=== PATIENT | female | born 1960 | race Caucasian/White ===

== ENCOUNTER → 2020-07-28 17:41 | Outpatient (CLI) | payer BC, SELFPAY ==
--- NOTE | ~2020-07-28 | MM_ITS ---
EXAMINATION: MM screening [facility] HISTORY: Screening mammogram TECHNIQUE: Craniocaudal and mediolateral oblique 3-D tomosynthesis images were obtained and synthetic 2-D images were generated. CAD analysis was submitted and interpreted. COMPARISON: No prior mammogram is available for comparison at this institution. BREAST PARENCHYMAL COMPOSITION: The breasts are almost entirely fatty. FINDINGS: There is no evidence of suspicious mass, calcification, or architectural distortion to sugg est malignancy in either breast. IMPRESSION: 1. No mammographic evidence of malignancy. 2. Recommend routine screening mammography in one year. BI-RADS Category 1: Negative Reviewed, dictated and finalized at location A.
== END ==
PROVIDERS: PCP Student in an Organized Health Care Education/Training Program; Visit Provider Student in an Organized Health Care Education/Training Program
DX: Z12.31 Encounter for screening mammogram for malignant neoplasm of breast (principal)
CPT/HCPCS: 77063; 77067

== ENCOUNTER → 2022-11-30 16:01 | Outpatient (CLI) | payer BC, SELFPAY ==
--- NOTE | ~2022-11-30 | MM_ITS ---
EXAMINATION: MM screening [facility] HISTORY: Screening mammogram TECHNIQUE: Craniocaudal and mediolateral oblique 3-D tomosynthesis images were obtained and synthetic 2-D images were generated. CAD analysis was submitted and interpreted. COMPARISON: 07/28/2020 bilateral screening mammogram BREAST PARENCHYMAL COMPOSITION: The breasts are almost entirely fatty. FINDINGS: There is no evidence of suspicious mass, calcification, or architectural distortion to sugg est malignancy in either breast. There has been no suspicious interval change. IMPRESSION: 1. No mammographic evidence of malignancy. 2. Recommend routine screening mammography in one year. BI-RADS Category 1: Negative Reviewed, dictated and finalized at location A.
== END ==
PROVIDERS: PCP Student in an Organized Health Care Education/Training Program; Visit Provider Student in an Organized Health Care Education/Training Program
DX: Z12.31 Encounter for screening mammogram for malignant neoplasm of breast (principal)
CPT/HCPCS: 77063; 77067

== ENCOUNTER 2024-04-30 07:27 | Outpatient (CLI) | payer BC, SELFPAY ==
--- NOTE | ~2024-04-30 | MM_ITS ---
EXAMINATION: MM screening [facility] w karina HISTORY: Screening TECHNIQUE: Craniocaudal and mediolateral oblique 3-D tomosynthesis images were obtained and synthetic 2-D images were generated. CAD analysis was submitted and interpreted. COMPARISON: Comparison to multiple prior studies sequentially, with oldest reviewed study dated 07/28. BREAST PARENCHYMAL COMPOSITION: Not Dense: The breasts are almost entirely fatty. FINDINGS: There is no evidence of suspicious mass, calcification, or architectural distortion to sugg est malignancy in either breast. There has been no suspicious interval change. IMPRESSION: 1. No mammographic evidence of malignancy. 2. Recommend routine screening mammography in one year. BI-RADS Category 1: Negative Reviewed, dictated and finalized at location B.
== END 2024-04-30 07:28 | disposition home or self-care (01) ==
LOC: MICIMG 07:29
PROVIDERS: PCP Student in an Organized Health Care Education/Training Program; Visit Provider Student in an Organized Health Care Education/Training Program
DX: Z12.31 Encounter for screening mammogram for malignant neoplasm of breast (principal)
CPT/HCPCS: 77063; 77067

== ENCOUNTER 2024-12-03 02:10 | Day surgery (SDC) | payer MEDICARE, OTHER, SELFPAY ==
[2024-11-24 11:12] VITALS: BMI 33.7
--- OUTSIDE RECORDS SUMMARY | 2024-12-03 02:13 | XMS_ITS | Clinical Summary ---
Author Organization [facility] Address [facility] [place] [address] Care Team Providers Care Actuarial Associate Name Role Phone VicHernesto José Miguel FRANCO Primary Care Provider + Allergies No known active allergies Medications aspirin EC 81 MG tablet Take 1 tablet (81 mg total) by mouth daily. Active CINNAMON OR Take 1 capsule by mouth daily. Active loratadine (CLARITIN) 10 MG tablet Take 1 tablet (10 mg total) by mouth daily as needed for Allergies. Active levothyroxine (SYNTHROID) 100 MCG tabletIndications: Hypothyroidism, unspecified type Take 1 tablet (100 mcg total) by mouth every morning. 90 tablet 09/08/19 25 025 Active olmesartan (BENICAR) 20 MG tabletIndications: Hypertension associated with type 2 diabetes mellitus (CMS/HCC HHS/HCC) Take 1 tablet (20 mg total) by mouth daily. 30 tablet 2 10/01/19 25 Active hydroCHLOROthiazid e (HYDRODIURIL) 25 MG tabletIndications: Primary hypertension TAKE 1 TABLET BY MOUTH EVERY DAY IN THE MORNING 90 tablet 11/28/19 25 Active rosuvastatin (CRESTOR) 20 MG tabletIndications: Hyperlipidemia, unspecified hyperlipidemia type TAKE 1 TABLET BY MOUTH NIGHTLY AT BEDTIME 90 tablet 11/28/19 25 Active hydroCHLOROthiazid e (HYDRODIURIL) 25 MG tabletIndications: Essential hypertension Take 1 tablet (25 mg total) by mouth every morning. 90 tablet 3 12/17/19 24 025 Discontinued rosuvastatin (CRESTOR) 20 MG tabletIndications: Hyperlipidemia, unspecified hyperlipidemia type TAKE 1 TABLET BY MOUTH NIGHTLY AT BEDTIME 90 tablet 1 03/19/19 25 025 Discontinued Active Problems Problem Noted Date Diagnosed Date BMI 32.0-32.9,adult 09/26/2018 Type 2 diabetes mellitus wit hout complication, with long-term current use of insulin 09/26/2018 Hypothyroidism, unspecified type 09/26/2018 Hyperlipidemia, unspecified hyperlipidemia type 09/26/2018 Essential hypertension 09/26/2018 Chronic pain of left ankle 09/26/2018 Encounters Date Type Department Care Team Description 10/27/2024 Telephone [facility] [address] [phone] Hernesto Healy, DO Advice 10/26/2024 Telephone [facility] [address] [facility] [place] [address] Chidi Barber MD Referral 10/20/2024 8:40 AM CDT - 10/20/2024 11:59 PM CDT Hospital Encounter [facility] [place] [address] Hernesto Healy, DO Discharge Disposition: Home or Self Care (Routine Discharge) 10/20/2024 Travel 10/09/2024 Telephone [facility] [address] [address] Hernesto Healy, DO Information 09/30/2024 7:40 AM CDT Office Visit [facility] [address] [phone] Hernesto Healy, DO Follow Up (Patient is here for a 6 month follow up.); Diabetes; Hypertension (Patient has noticed new issues since changing from lisinopril-HCTZ to lisinopril and HCTZ sepearately.); Hyperlipidemia (Patient is concerned for statin cough.) 09/30/2024 Results Follow-Up [facility] [address] [phone] Vic Hernesto P, DO HEMOGLOBIN, GLYCOSYLATED, ALBUMIN URINE RANDOM W/CREATININE, CBC W/DIFF AUTOMATED, Additional followed-up results: 6 09/30/2024 Travel from Last 3 Months Immunizations Immunization Administration Dates Next Due Flucelvax 6 Months+ (Prefill ed Syringe) 11/07/2019 Fluzone High Dose (IIV, triv alent, 0.5mL) 11/15/2023 Influenza Adult (Generic) 11/30/2022,,11/08/2020,2019 PFIZER COVID-19 (ORIGINAL FORMULATION, PURPLE CAP) mRNA, LNP-S, PF, 30 MCG/0.3 ML DOSE 05/13/2020,04/22/2020 Pneumococcal (Pneumovax 23) 09/04/2020 Pneumococcal (Prevnar 20) 12/13/2023 Shingrix 03/02/2024,12/13/2023 Tdap (Generic) 09/04/2020 Family History Medical History Relation Comments Heart Attack Brother Heart Disease Brother Alcohol Abuse Father Heart Attack Father Heart Disease Father Stroke Father Heart Attack Mother Heart Disease Mother Diabetes Paternal Grandmother Alcohol Abuse Sister 1 Alcohol Abuse Sister 2 Relation Status Comments Brother Father Mother Paternal Grandmother Sister 1 Sister 2 Alive Social History Tobacco Use Types Packs/Day Years Used Date Smoking Tobacco: Never Smokeless Tobacco: Never Tobacco Cessation:Counseling Given: No Alcohol Use Standard Drinks/Week Comments Not Currently 0 (1 standard drink = 0.6 oz pur e alcohol) rarely PHQ-2 Answer Date Recorded Patient Health Questionnaire-2 Score 0 09/30/2024 Comments No Sex and Gender Information Value Date Recorded Sex Assigned at Female 09/30/2024 8:32 AM CDT Legal Sex Female 2:37 PM CDT Gender Identity Female 09/30/2024 8:32 AM CDT Sexual Orientation Not on file Last Filed Vital Signs Vital Sign Reading Time Taken Comments Blood Pressure 124/76 09/30/2024 8:03 AM CDT Pulse 96 09/30/2024 8:03 AM CDT Temperature 35.9 C (96.6 F) 09/30/2024 8:03 AM CDT Respiratory Rate 16 11/21/2023 1:19 PM CDT Oxygen Saturation 98% 09/30/2024 8:03 AM CDT Inhaled Oxygen Concentration - - Weight 92.7 kg (204 lb 4.8 oz) 09/30/2024 8:03 A M CDT Height 165.1 cm (5' 5) 09/30/2024 8:03 AM CDT Body Mass Index 34 09/30/2024 8:03 AM CDT Plan of Treatment Health Maintenance Due Date Last Done Comments Annual Medicare Wellness Visit 07/01/2023 COVID-19 Vaccine ( season) 2024 11/15/2023, 11/30/2022, 11/26/2021, Additional history exists Influenza Adult (#1) 2024 11/15/2023, 11/30/2022, 11/26/2021, Additional history exists Hemoglobin A1C 04/02/2025 09/30/2024, 11/11, 09/27/2022, Additional history exists Mammogram Screening 04/30/2025 04/30/2024, 11/30/2022, 07/28/2020 Diabetes: Retinopathy Eye Exam 06/14/2025 06/15/2023, 09/07/2022 Kidney Health Evaluation 10/09/2025 10/09/2024 Lipid Panel 10/09/2025 10/09/2024, 11/12, 10/04/2022, Additional history exists Colorectal Cancer Screening FIT-DNA (3 Years) 10/16/2027 10/15/2024, 02/10/2021, 02/10/2021 DTaP, Tdap and Td Vaccines (2 - Td or Tdap) 09/04/2030 09/04/2020 RSV Immunization or 60+ Years (1 - 1-dose 75+ series) 2033 Hepatitis C Completed 09/12/2020 Pneumococcal Vaccine: 50+ Years Completed 12/13/2023, 09/04/2020 Zoster Vaccines Completed 03/02/2024, 12/13/2023 PHQ-2 (Physician [place]) Completed 09/30/2024 Dexa Scan (General) Completed 10/20/2024 Hepatitis A Vaccines Aged Out No long er eligible based on patient's age to complete this topic Meningococcal B Vaccine Aged Out No l onger eligible based on patient's age to complete this topic Meningococcal Vaccine Aged Out No corine jhonathan eligible based on patient's age to complete this topic RSV Immunizations Under 20 Months Aged Out No longer eligible based on patient's age to complete this topic Procedures Procedure Name Priority Date/Time Associated Diagnosis Comments BONE DENSITY/DEXA Routine 10/20/2024 9:1 3 AM CDT Postmenopausal COLOGUARD (EXACT SCIENCE) Routine 10/15/2024 12:30 PM CDT Screening for malignant neoplasm of colon VITAMIN D, 25 OH 10/09/2024 9:08 AM CDT LIPID PANEL Routine 10/09/2024 9:08 AM CDT Type 2 diabetes mellitus without complication, with long-term current use of insulin (CMS/HCC HHS/HCC) Hypertension associated with type 2 diabetes mellitus (CMS/HCC HHS/HCC) Hyperlipidemia associated with type 2 diabetes mellitus (CMS/HCC HHS/HCC) Low vitamin D level TSH W/REFLEX Routine 10/09/2024 9:08 AM CDT Type 2 diabetes mellitus without complication, with long-term current use of insulin (CMS/HCC HHS/HCC) Hypertension associated with type 2 diabetes mellitus (CMS/HCC HHS/HCC) Hyperlipidemia associated with type 2 diabetes mellitus (CMS/HCC HHS/HCC) Low vitamin D level COMPREHENSIVE METABOLIC PANEL Routine 10/09/2024 9:08 AM CDT Type 2 diabetes mellitus without complication, with long-term current use of insulin (CMS/HCC HHS/HCC) Hypertension associated with type 2 diabetes mellitus (CMS/HCC HHS/HCC) Hyperlipidemia associated with type 2 diabetes mellitus (CMS/HCC HHS/HCC) Low vitamin D level CBC W/DIFF AUTOMATED Routine 10/09/2024 9:08 AM CDT Type 2 diabetes mellitus without complication, with long-term current use of insulin (CMS/HCC HHS/HCC) Hypertension associated with type 2 diabetes mellitus (CMS/HCC HHS/HCC) Hyperlipidemia associated with type 2 diabetes mellitus (CMS/HCC HHS/HCC) Low vitamin D level ALBUMIN URINE RANDOM W/CREATININE Routine 10/09/2024 9:08 AM CDT Type 2 diabetes mellitus without complication, with long-term current use of insulin ([facility]) Hypertension associated with type 2 diabetes mellitus ([facility]) Hyperlipidemia associated with type 2 diabetes mellitus ([facility]) Low vitamin D level COLLECT.CAPILLARY (FNGR,HEEL,EAR) Routine 09/30/2024 7:50 AM CDT Type 2 diabetes mellitus without complication, with long-term current use of insulin ([facility]) HEMOGLOBIN, GLYCOSYLATED Routine 09/30/2024 Type 2 diabetes mellitus without complication, with long-term current use of insulin ([facility]) MG SCREENING W GREGG DEBBIE DIGI Routine 04/30/2024 12:00 AM CDT Encounter for screening mammogram for breast cancer DIABETIC RETINOPATHY EXAM (NEGATIVE)(SCAN ORDER) Routine 06/15/2023 from Last 3 Months or Most Recently Relevant to Health Maintenance Results * BONE DENSITY/DEXA (10/20/2024 9:13 AM CDT) Anatomical Region Laterality Modality Bone Mammography 10/20/2024 9:24 AM CDT Impressions 10/20/2024 9:25 AM CDT IMPRESSION: WHO Classification: Normal. RECOMMENDATIONS: All patients should ensure an adequate intake of dietary calcium and vitamin D. The NOF recommend adults under the age of 50 need 1000 mg of calcium and 400-800 IU of vitamin D daily. Effective therapy for the prevention and treatment of osteoporosis include bisphosphonates. FOLLOW-UP: People with diagnosed cases of osteoporosis or at high risk for fracture should have regular bone mineral density test. For patients eligible for Medicare, routine testing is allowed once every 2 years. Testing frequency can be increased to one year for patients who have rapidly progressing disease, those who are receiving or discontinuing medical therapy to restore bone mass, or have additional risk factors. Ordered By: HERNESTO HEALY Interpreted By: Jarek Pemberton, 10/20/2024 9:24 AM Narrative 10/20/2024 9:25 AM CDT [facility] [place] [address] EXAMINATION: BONE DENSITY/DEXA INDICATIONS: Asymptomatic menopausal state COMPARISON: None TECHNIQUE: DEXA bone mineral density evaluation was performed in the AP projection over the lumbar spine and both hips utilizing standard imaging techniques. FINDINGS: The BMD measured at the AP spine L1-L4 is 1.079 g/cm? with a T-score of 0.3. The BMD measured at the left femoral neck is 0.763 g/cm? with a T-score of -0.8. The BMD measured at the left hip is 0.993 g/cm? with a T-score of 0.4. The BMD measured at the right femoral neck is 0.736 g/cm? with a T-score of - 1.0. The BMD measured at the right hip is 0.988 g/cm? with a T-score of 0.4. FRAX 10-year fracture risk: Major Osteoporotic Fracture: 7.7% Hip Fracture: 0.6% Procedure Note Jarek Pemberton MD - 10/20/2024 [facility] [place] [address] EXAMINATION: BONE DENSITY/DEXA INDICATIONS: Asymptomatic menopausal state COMPARISON: None TECHNIQUE: DEXA bone mineral density evaluation was performed in the APprojection over the lumbar spine and both hips utilizing standard imagingtechniques. FINDINGS: The BMD measured at the AP spine L1-L4 is 1.079 g/cm? with a T-score of0.3. The BMD measured at the left femoral neck is 0.763 g/cm? with a T-score of-0.8. The BMD measured at the left hip is 0.993 g/cm? with a T-score of 0.4. The BMD measured at the right femoral neck is 0.736 g/cm? with a T-scoreof -1.0. The BMD measured at the right hip is 0.988 g/cm? with a T-score of 0.4. FRAX 10-year fracture risk: Major Osteoporotic Fracture: 7.7% Hip Fracture: 0.6% IMPRESSION: WHO Classification: Normal. RECOMMENDATIONS: All patients should ensure an adequate intake of dietary calcium andvitamin D. The NOF recommend adults under the age of 50 need 1000 mg ofcalcium and 400-800 IU of vitamin D daily. Effective therapy for theprevention and treatment of osteoporosis include bisphosphonates. FOLLOW-UP: People with diagnosed cases of osteoporosis or at high risk for fractureshould have regular bone mineral density test. For patients eligible forMedicare, routine testing is allowed once every 2 years. Testing frequencycan be increased to one year for patients who have rapidly progressingdisease, those who are receiving or discontinuing medical therapy torestore bone mass, or have additional risk factors. Ordered By: HERNESTO HEALY Interpreted By: Jarek Pemberton, 10/20/2024 9:24 AM us Hernesto Healy DO DEXA Final Re sult * (ABNORMAL) COLOGUARD ([employer] SCIENCE) (10/15/2024 12:30 PM CDT) COLOGUARD RESULT Positive( A) Negative [facility] (CLIA #:[id number]) Comment: The Cologuard Plus (TM) test was performed on this specimen. POSITIVE TEST RESULT. A positive (abnormal) Cologuard Plus result means the patient has a [id number] chance of having colorectal cancer (CRC) or precancer (polyps or lesions that could become cancer). The normal value (reference range) for this assay is negative. A positive result should be followed by a colonoscopy to locate and confirm the presence of cancer or precancer. A positive Cologuard Plus result is not a cancer diagnosis. The federal government now considers the colonoscopy following a positive Cologuard Plus test result a covered preventive service. Call for more information. A clinical validation study measured the effectiveness of the Cologuard Plus test. Out of 100 patients testing positive: approximately 3 patients will have CRC; 34 patients will have advanced precancer; 33 will have a non-advanced precancer; and 30 will have no cancer or precancer. TEST DESCRIPTION: The Cologuard Plus test is a multi-target stool DNA (mt-sDNA) test that analyzes DNA and hemoglobin biomarkers in stool. It uses a proprietary algorithm to qualitatively detect CRC and advanced precancer. It is FDA-approved and indicated for use in adults 45 years or older at average risk for CRC. A positive (abnormal) result should be followed by a colonoscopy. Patients with a negative (normal) result should screen again in 3 years. False positive and false negative results may occur. The USPSTF recommends the Cologuard test as a CRC screening option. Their modeling estimates that screening with the test every 3 years from ages 45-85 could prevent up to 73% of CRC and avoid up to 85% of CRC deaths. A 18,911-patient clinical trial found the Cologuard Plus test effectively detects CRC and precancer. The study found the test was 95% sensitive for CRC, 43% sensitive for advanced precancer, and had a 91% specificity (Cologuard Plus Clinician Brochure. [employer]. [place], [place].). Visit [email or web address]/about/lxsgemtb-rmrgizmapdp-ryoymjkrmlc for more test information, references, warnings, and precautions. STOOL STOOL SPECIMEN / Unknown 10/15/2024 12:30 PM CDT 10/17/2024 1:24 PM CDT us Hernesto Healy DO BODY FLUIDS AND STOOLS O RDERABLES Final Result [facility], [employer] [address] [place] [address], [facility] (CLIA #:[id number]) [address] [place] [address] * TSH W/REFLEX (10/09/2024 9:08 AM CDT) TSH 1.220 0.450 - 4.50 uIU/mL [facility] 1 10/09/2024 9:08 AM CDT 10/09/2024 Narrative [facility] - 10/10/2024 12:10 PM CDT Performed at: [facility] [id number] Quality Review Specialist: Ehsan Trammell PhD, Phone: [phone] Hernesto Healy DO LABORATORY Final Re sult Performing Organization Address [facility] de Phone Number [facility] [address] [place] [address] [facility] * ALBUMIN URINE RANDOM W/CREATININE (10/09/2024 9:08 AM CDT) CREATININE (URINE) 72.1 Not Estab. mg/dL [facility] 1 ALBUMIN (U) 16.5 Not Estab. ug/mL [facility] 1 ALBUMIN/CREAT RATIO 23 0 - 29 mg/g creat [facility] 1 Comment: Normal: 0 - 29 Moderately increased: 30 - 300 Severely increased: >300 URINE SPECIMEN / Unknown 10/09/2024 9:08 AM CDT 10/09/2024 Narrative [facility] - 10/10/2024 12:10 PM CDT Performed at: [address] [id number] Quality Review Specialist: Ehsan Trammell PhD, Phone: [phone] Hernesto Healy DO URINE ORDERABLES Final R esult Performing Organization Address [facility] de Phone Number [facility] [address] [place] [address] [facility] * (ABNORMAL) COMPREHENSIVE METABOLIC PANEL (10/09/2024 9:08 AM CDT) GLUCOSE 121(H) 70 - 99 mg/dL [facility] 1 BUN 16 8 - 27 mg/dL [facility] 1 CREATININE S/P/B 0.82 0.57 - 1.00 mg/dL [facility] 1 GFR ESTIMATE 79 >59 mL/min/1.7 3 [facility] 1 BUN CREATININE RATIO 20 12 - 28 [facility] 1 SODIUM S/P/B 137 134 - 144 mmol/L [facility] 1 POTASSIUM S/P/B 4.0 3.5 - 5.2 mmol/L [facility] 1 CHLORIDE S/P/B 98 96 - 106 mmol/L [facility] 1 CO2 22 20 - 29 mmol/L [facility] 1 CALCIUM S/P/B 9.7 8.7 - 10.3 mg/dL [facility] 1 TOTAL PROTEIN S/P/B 7.7 6.0 - 8.5 g/dL [facility] 1 ALBUMIN S/P/B 4.6 3.9 - 4.9 g/dL [facility] 1 GLOBULIN 3.1 1.5 - 4.5 g/dL [facility] 1 BILIRUBIN TOTAL S/P/B 0.4 0.0 - 1.2 mg/dL [facility] 1 ALKALINE PHOSPHATASE S/P/B 86 44 - 121 IU/L [facility] 1 Comment: Effective October 26, 2024 Alkaline Phosphatase reference interval will be changing to: Age Male Female 0 - 5 days 47 - 127 47 - 127 6 - 10 days 29 - 242 29 - 242 11 - 20 days 109 - 357 109 - 357 21 - 30 days 94 - 494 94 - 494 1 - 2 months 149 - 539 149 - 539 3 - 6 months 131 - 452 131 - 452 7 - 11 months 117 - 401 117 - 401 12 months - 6 years 158 - 369 158 - 369 7 - 12 years 150 - 409 150 - 409 13 years 156 - 435 78 - 227 14 years 114 - 375 64 - 161 15 years 88 - 279 56 - 134 16 years 74 - 207 51 - 121 17 years 63 - 161 47 - 113 18 - 20 years 51 - 125 42 - 106 21 - 50 years 47 - 123 41 - 116 51 - 80 years 49 - 135 51 - 125 >80 years 48 - 129 48 - 129 AST 37 0 - 40 IU/L [facility] 1 ALT 33(H) 0 - 32 IU/L [facility] 1 10/09/2024 9:08 AM CDT 10/09/2024 Narrative [facility] - 10/10/2024 12:10 PM CDT Performed at: 01 - [address] [id number] Quality Review Specialist: Ehsan Trammell PhD, Phone: [phone] Hernesto Healy DO LABORATORY Final Re sult Performing Organization Address [facility] de Phone Number [facility] [address] [place] [address] [facility] * (ABNORMAL) LIPID PANEL (10/09/2024 9:08 AM CDT) Pathologist [facility] CHOLESTEROL 158 100 - 199 mg/dL [facility] 1 TRIGLYCERIDES 164(H) 0 - 149 mg/dL [facility] 1 HDL 51 >39 mg/dL [facility] 1 VLDL CALCULATION 28 5 - 40 mg/dL [facility] 1 LDL (CALCULATED) 79 0 - 99 mg/dL [facility] 1 10/09/2024 9:08 AM CDT 10/09/2024 Narrative [facility] - 10/10/2024 12:10 PM CDT Performed at: 01 - [address] [id number] Quality Review Specialist: Ehsan Trammell PhD, Phone: [phone] Hernesto Healy DO LABORATORY Final Re sult Performing Organization Address [facility] de Phone Number [facility] [address] [place] [address] [facility] 1 * (ABNORMAL) CBC W/DIFF AUTOMATED (10/09/2024 9:08 AM CDT) Pathologist [facility] WBC 7.9 3.4 - 10.8 x10E3/uL [facility] 1 RBC 4.77 3.77 - 5.28 x10E6/uL [facility] 1 HGB 14.0 11.1 - 15.9 g/dL [facility] 1 HCT 43.5 34.0 - 46.6 % [facility] 1 MCV 91 79 - 97 fL [facility] 1 MCH 29.4 26.6 - 33.0 pg [facility] 1 MCHC 32.2 31.5 - 35.7 g/dL [facility] 1 RDW 13.1 11.7 - 15.4 % [facility] 1 PLATELET COUNT 228 150 - 450 x10E3/uL [facility] 1 NEUTROPHILS % 47 Not Estab. % [facility] 1 LYMPHOCYTES % 43 Not Estab. % [facility] 1 MONOCYTES % 5 Not Estab. % [facility] 1 EOSINOPHILS % 4 Not Estab. % [facility] 1 BASOPHILS % 1 Not Estab. % [facility] 1 ABS. NEUTROPHILS 3.7 1.4 - 7.0 x10E3/uL [facility] 1 ABS. LYMPHOCYTES 3.4(H) 0.7 - 3.1 x10E3/uL [facility] 1 MONOCYTES 0.4 0.1 - 0.9 x10E3/uL [facility] 1 ABS. EOSINOPHILS 0.3 0.0 - 0.4 x10E3/uL [facility] 1 ABS. BASOPHILS 0.0 0.0 - 0.2 x10E3/uL [facility] 1 ABS. IMMATURE GRANULOCYTES 0 Not Estab. % [facility] 1 ABS. IMMATURE GRANULOCYTES 0.0 0.0 - 0.1 x10E3/uL [facility] 1 10/09/2024 9:08 AM CDT 10/09/2024 Narrative [facility] - 10/10/2024 12:10 PM CDT Performed at: - [address] [id number] Quality Review Specialist: Ehsan Trammell PhD, Phone: [phone] Hernesto Healy DO LABORATORY Final Re sult Performing Organization Address City/State/[facility] Co de Phone Number [facility] [address] [place] [address] [facility] * VITAMIN D, 25 OH (10/09/2024 9:08 AM CDT) [facility] VITAMIN D 25 HYDROXY S/P/B 35.6 30.0 - 100.0 ng/mL [facility] 1 Comment: Vitamin D deficiency has been defined by the [place] of [employer] and an Endocrine Society practice guideline as a level of serum 25-OH vitamin D less than 20 ng/mL (1,2). The Endocrine Society went on to further define vitamin D insufficiency as a level between 21 and 29 ng/mL (2). 1. IOM ([place] of [employer]). 2010. Dietary reference intakes for calcium and D. [place]: The National Academies Press. 2. Prachi MF, Shamar [place], Argenis PURCELL, et al. Evaluation, treatment, and prevention of vitamin D deficiency: an Endocrine Society clinical practice guideline. JCEM. 2010; 96(7):1911-30. 10/09/2024 9:08 AM CDT 10/09/2024 Narrative [facility] - 10/10/2024 12:10 PM CDT Performed at: 01 - [facility] [id number] Quality Review Specialist: Ehsan Trammell PhD, Phone: [phone] us Hernesto P Luchtefeld DO LABORATORY Final Re sult Performing Organization Address [facility] de Phone Number [facility] [address] [place] [address] [facility] * HEMOGLOBIN, GLYCOSYLATED (09/30/2024) HGB A1C 6.4 % [facility] 09/30/2024 us Hernesto P Michaelhtefeld DO LABORATORY Final Re sult Performing Organization Address [facility] de Phone Number [facility] [address] [place] [address], [place] * MG SCREENING W GREGG DEBBIE DIGI (04/30/2024 12:00 AM CDT) Anatomical Region Laterality Modality Breast Bilateral Mammography 04/30/2024 us Hernesto P Luchtefeld DO MAMMO Final Re sult * DIABETIC RETINOPATHY EXAM (NEGATIVE) (06/15/2023) us [facility] Scanned SCANNING Final Resu lt Performing Organization Address [facility] de Phone Number [facility] from Last 3 Months or Most Recently Relevant to Health Maintenance [place] [address] [address] MEDICARE Care Teams Actuarial Associate Relationship Specialty Start Date End Date Hernesto Healy DO [address] [place] [id number] PCP - General FAMILY PRACTICE 09/26/18"
[2024-12-03 10:10] VITALS: BP 155/77; PULSE 100; RESP 18; TEMP 36.4; O2SAT 98; BMI 34.1
[2024-12-03] MEDS: LACTATED RINGERS 1,000 ML 150 ML IV CONT (10:24)
--- NOTE | 2024-12-03 10:38 | WPDANESEPPF ---
Anes - Initial Pre Proc Eval Procedure: Operation Date: 12/03/24 11:30 Proposed Procedures p Screening Colonoscopy - Hank Shipley MD Date/Time: 12/03/24 10:38 Surgeon: Hank Shipley MD Pre Op Diagnosis: screening/Positive Cologuard Patient Data Age: 64 Gender: F Height: 1.65 m Weight: 93 kg Last Vital Signs Temp 97.5 F L 12/03/24 10:10 Pulse 100 12/03/24 10:10 Resp 18 12/03/24 10:10 BP 155/77 H 12/03/24 10:10 Pulse Ox 98 12/03/24 10:10 O2 Del Method Room Air 12/03/24 10:10 Allergies Allergy/AdvReac Type Severity Reaction Status Date / Time No Known Allergies Allergy Verified 12/03/24 10:14 Home Medications ?Medication ?Instructions ?Recorded ?Confirmed ?Type aspirin 81 mg capsule 81 mg PO DAILY 11/24/24 12/03/24 History hydrochlorothiazide 25 mg tablet 25 mg PO DAILY 11/24/24 12/03/24 History levothyroxine 100 mcg tablet 100 mcg PO DAILY 11/24/24 12/03/24 History olmesartan 20 mg tablet 20 mg PO DAILY 11/24/24 12/03/24 History rosuvastatin 20 mg tablet 20 mg PO DAILY 11/24/24 12/03/24 History Patient hx anesthesia problems: none Family hx anesthesia problems: none Results Review: All pre-operative results and documents have been reviewed as part of the pre-operative evaluation. COUNT INCLUDES [facility] Family History Family History Other Cerebrovascular accident Diabetes mellitus Family history of coronary artery disease Family history of elevated blood lipids Hypertension Social History Social History Smoking status: Never smoker Alcohol intake: current Substance use type: does not use Living arrangements: alone Spiritual care concerns: No Anes - Eval Final PreProcedure Day of Procedure 12/03/24 10:38 Patient weight: obese Lungs: normal air movement Airway: Mallampati scale class II Neurological: alert and oriented Last oral intake: >/= 8 hours ASA classification: III Emergent: no Anesthetic plan: proceed Anesthesia type and monitoring: general GIVS and standard monitoring Results Review: All pre-operative results and documents have been reviewed as part of the pre-operative evaluation. HTN, hyperlipidemia, hypothyroidism, BMI 34, pt can walk 1-2 miles/day, no cp or sob. Informed Consent: The patient's anesthetic plan and its attendant risks and benefits were discussed with the patient/family/POA. Questions were solicited and answers provided to the satisfaction of the patient/family/POA.
--- NOTE | 2024-12-03 10:52 | PM.IMHP ---
H&P: HPI History of Present Illness Date/Time: 12/03/24 10:52 Chief Complaint: Positive Cologuard test Narrative: This is the patient's first colonoscopy. She was recently found to have a Cologuard positive test. There are no GI symptoms and there is no family history of colorectal cancer. Review of Systems Review of Systems: All systems reviewed & are unremarkable except as noted in HPI and below PMFSH Family History Family History Other Cerebrovascular accident Diabetes mellitus Family history of coronary artery disease Family history of elevated blood lipids Hypertension Social History Social History Smoking status: Never smoker Alcohol intake: current Substance use type: does not use Living arrangements: alone Spiritual care concerns: No Meds Home Medications and Allergies Home Medications ?Medication ?Instructions ?Recorded ?Confirmed ?Type aspirin 81 mg capsule 81 mg PO DAILY 11/24/24 12/03/24 History hydrochlorothiazide 25 mg tablet 25 mg PO DAILY 11/24/24 12/03/24 History levothyroxine 100 mcg tablet 100 mcg PO DAILY 11/24/24 12/03/24 History olmesartan 20 mg tablet 20 mg PO DAILY 11/24/24 12/03/24 History rosuvastatin 20 mg tablet 20 mg PO DAILY 11/24/24 12/03/24 History Allergies Allergy/AdvReac Type Severity Reaction Status Date / Time No Known Allergies Allergy Verified 12/03/24 10:14 Vital Signs Vital Signs - 24 hr 12/03/24 10:10 Temperature 97.5 F L Pulse Rate 100 Respiratory Rate 18 Blood Pressure 155/77 H Pulse Oximetry 98 Oxygen Delivery Room Air Exam Const: General: cooperative and healthy appearing Resp: Effort & Inspection: normal respiratory effort and able to speak in complete sentences Auscultation: clear to auscultation bilaterally Cardio: Rate: regular rate Rhythm: regular rhythm GI: Inspection: normal to inspection GI Palp: No No hepatosplenomegaly present Auscultation: normal bowel sounds Rectal Exam: deferred Skin: General skin exam: normal color Psych: Appearance: grossly normal Mental Status: mental status grossly normal Assessment and Plan Assessment and plan (1) Positive colorectal cancer screening using Cologuard test: Code(s): R19.5 - Other fecal abnormalities Status: Acute Assessment and Plan: The patient is deemed a good candidate for the procedure. Consent signed. Will proceed.
--- NOTE | 2024-12-03 11:03 | S_PTH ---
PATIENT: Mali Beckham LOC: [facility] U#:[id number] AGE/SX: 64/F ROOM: RE12/03/[address]: Hank Shipley MD : 1960 BED: DIS: 12/03/2024 SPEC #: [id number] RECD: 12/03/24 13:10 STATUS: ZAN REZack #: [id number] LISA: 12/03/24 11:[address]: Hank Shipley DEPT: [facility] Surgical RECD BY: Becka Handy ENTERED: 12/03/24 13:10 SP TYPE: Surgical OTHR DR: Alok Ho, DO Tissues: A - Colon Polypectomy Procedures: Hematoxylin and Eosin Stain Gross and Microscopic Level 4
[2024-12-03 11:12] VITALS: BP 128/67; PULSE 83; RESP 23; O2SAT 96
[2024-12-03 11:22] VITALS: BP 122/64; PULSE 82; RESP 23; O2SAT 100
[2024-12-03 11:32] VITALS: BP 132/64; PULSE 79; RESP 13; O2SAT 100
== END 2024-12-03 11:41 | disposition home or self-care (01) ==
PROVIDERS: PCP Student in an Organized Health Care Education/Training Program; Visit Provider Internal Medicine Gastroenterology
PROC: 0DJD8ZZ Inspection of Lower Intestinal Tract, Via Natural or Artificial Opening Endoscopic (ICD-10-PCS; CPT 45378; principal; 2024-12-03 11:30)
DX: R19.5 Other fecal abnormalities (principal); D12.3 Benign neoplasm of transverse colon; E78.5 Hyperlipidemia, unspecified; E03.9 Hypothyroidism, unspecified; I10 Essential (primary) hypertension; E11.9 Type 2 diabetes mellitus without complications; E66.9 Obesity, unspecified; Z68.34 Body mass index [BMI] 34.0-34.9, adult; Z79.82 Long term (current) use of aspirin; Z82.49 Family history of ischemic heart disease and other diseases of the circulatory system
CPT/HCPCS: 45385; 88305; J2704; J7120